=== PATIENT | female | born 1980 | race African-American/Black ===

== ENCOUNTER → 2017-02-14 | Outpatient (CLI) | payer OTHER | LOC: RAD 09:40 | DX: R07.9 Chest pain, unspecified (principal); R55 Syncope and collapse ==

== ENCOUNTER → 2021-01-05 | Outpatient (CLI) | payer OTHER | LOC: RAD 10:37 | PROVIDERS: ATTEND Nurse Practitioner | DX: D25.9 Leiomyoma of uterus, unspecified (principal); N83.291 Other ovarian cyst, right side; N83.292 Other ovarian cyst, left side ==

== ENCOUNTER 2021-04-17 12:22 | Emergency (ER) | payer OTHER ==
[~2021-04-17] VITALS: Ht 180.3 cm; Wt 137.9 kg
[2021-04-17 15:41] LABS: CALCIUM 8.9 mg/dL (8.5-10.1); CREATININE 0.7 mg/dL (0.6-1.0); POTASSIUM 3.8 mmol/L (3.5-5.1)
[2021-04-17 15:42] LABS: ABSOLUTE NEUTROPHILS 5.8 thou/uL (1.4-8.2); EOSINOPHILS 1.5 % (0.0-3.0); HEMATOCRIT 31.3 % (37.0-47.0); HEMOGLOBIN 9.5 gm/dL (12.0-15.0); LYMPHOCYTES 20.3 % (24.0-44.0); MCH 22.1 pg (26.0-34.0); MCHC 30.4 g/dL (28.0-37.0); MCV 72.6 fL (80.0-100.0); MONOCYTES 6.3 % (1.0-8.0); PLATELET COUNT 287 thou/uL (150-400); POLYS 70.9 % (36.0-66.0); RBC 4.31 mil/uL (4.20-5.00); RDW 18.4 % (10.5-14.5); WBC 8.1 thou/uL (4.0-11.0)
[2021-04-17 15:51] LABS: ALBUMIN 3.2 g/dL (3.4-5.0); TOTAL BILIRUBIN 0.3 mg/dL (0.2-1.0); TOTAL PROTEIN 7.4 g/dL (6.4-8.2)
[2021-04-17] MEDS ORDERED: VITAMIN D21250 MCG PO (15:52)
[2021-04-17 16:11] LABS: ANISOCYTOSIS 2+; HYPOCHROMASIA 2+; MACROCYTES FEW; MICROCYTES 1+; POLYCHROMASIA OCCASIONAL
[2021-04-17] MEDS ORDERED: CIPROFLOXIN HC2.5 M1 OTIC (16:17)
[2021-04-17 16:59] VITALS: BP 138/72
--- NOTE | 2021-04-18 13:40 | EKG ---
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
== END 2021-04-17 16:50 | disposition home or self-care (01) ==
LOC: ER 12:22
PROVIDERS: Physician Assistant
DX: S05.02XA Injury of conjunctiva and corneal abrasion without foreign body, left eye, initial encounter (principal); D64.9 Anemia, unspecified; R29.810 Facial weakness; X58.XXXA Exposure to other specified factors, initial encounter; Y93.89 Activity, other specified; Y92.89 Other specified places as the place of occurrence of the external cause; Y99.8 Other external cause status

== ENCOUNTER → 2021-05-07 | Outpatient (CLI) | payer OTHER ==
[~2021-05-07] MED LIST: CIPROFLOXIN HC2.5 M1 OTIC; GUMMI BEAR MUL1 EAC1 PO; IRON325 PO; VITAMIN D21250 MCG PO
== END ==
LOC: LAB 10:52
PROVIDERS: ATTEND Student in an Organized Health Care Education/Training Program
DX: Z01.812 Encounter for preprocedural laboratory examination (principal); Z20.822 Contact with and (suspected) exposure to COVID-19

== ENCOUNTER → 2021-05-11 | Outpatient (CLI) | payer OTHER ==
[~2021-05-11] VITALS: Ht 182.9 cm; Wt 139.7 kg
--- NOTE | 2021-05-14 11:07 | PATH ---
[facility] [address] [place] [address] PATHOLOGY RPT PROCEDURE Name: ROSALIND SCHMIDT Room #: REG [facility] Ashley..#: [id number] Admission: 05/11/21 Date of : 78 Discharge: Report #: [id number] Path Case #: [id number] [facility] Accession Number: [id number] . 01 Material submitted: . ileum - TI NODULE . 01 Clinical history: . COLONOSCOPY ANEMIA, FM HX OF CC, RECTAL BLEEDING . 02 Diagnosis: Small bowel mucosa, terminal ileum nodule, endoscopic biopsy: - WELL-DIFFERENTIATED NEUROENDOCRINE TUMOR/CARCINOID TUMOR. (IUV:pit; 05/12/2021) QTP 05/12/2021 1457 Local . 02 Comment: Examination shows tumor with vickie formation predominantly within the lamina propria, as well as the submucosal fragments. Multiple additional fragments of unremarkable and uninvolved mucosa are identified. There are no adenomatous changes within the fragments. Properly controlled synaptophysin is performed and shows strong granular reactivity within the lesion consistent with the diagnosis rendered. Ki-67 shows approximately 1% nuclear reactivity/proliferation index. . Dr. Crystal Schmid has seen a front desk representative slide of this case and concurs with the diagnosis. Findings of this case are telephoned to Dr. Boone Rice's biomedical engineer at 2:20 pm on 05/12/2021. (IUV:pit; 05/12/2021) . 02 Electronically signed: . Melissa Santos MD, Pathologist NPI- [id number] . 01 Gross description: . The specimen is submitted in formalin, labeled "Rosalind Schmidt, TI nodule". Received are multiple segments of pale fang tissue ranging in size from 0.2 to 0.5 cm in maximum dimensions. The specimen is submitted entirely in cassette A1. ([facility]; 05/11/2021) NRI/NRI 05/11/2021 Local . 02 Pathologist provided ICD-10: D36.15, D3A.8 . 02 [place] [address] PATHOLOGY RPT PROCEDURE Name: JAVONROSALIND Mitchell Room #: [facility].#: [id number] Admission: 05/11/21 Date of : 78 Discharge: Report #: [id number] Path Case #: [id number] Specimen Comment: A courtesy copy of this report has been sent to [phone] Specimen Comment: [id number] Specimen Comment: Report sent to AND DR LAN Specimen Comment: A duplicate report has been generated due to demographic updates. Performed at: [address], [place] [id number] MD Primo Campuzano MD Phone: [phone] Performed at: [address] [id number] MD Melissa Santos MD Phone: [phone]
== END | disposition home or self-care (01) ==
LOC: GI 06:55
PROVIDERS: ATTEND Internal Medicine
DX: D50.9 Iron deficiency anemia, unspecified (principal); D3A.8 Other benign neuroendocrine tumors; K62.5 Hemorrhage of anus and rectum; K64.8 Other hemorrhoids; I10 Essential (primary) hypertension; E66.01 Morbid (severe) obesity due to excess calories; D64.9 Anemia, unspecified; Z79.899 Other long term (current) drug therapy; Z98.890 Other specified postprocedural states; Z68.41 Body mass index [BMI] 40.0-44.9, adult
CPT/HCPCS: 62110; 62900

== ENCOUNTER → 2021-05-20 | Outpatient (CLI) | payer OTHER | END | disposition home or self-care (01) | LOC: LAB 14:03 | PROVIDERS: ATTEND Internal Medicine | DX: C7A.012 Malignant carcinoid tumor of the ileum (principal) ==

== ENCOUNTER → 2021-05-20 | Outpatient (CLI) | payer OTHER | LOC: MRI 09:37 | PROVIDERS: ATTEND Family Medicine | DX: R29.810 Facial weakness (principal) ==

== ENCOUNTER → 2021-06-02 | Outpatient (CLI) | payer OTHER | LOC: CAT 05-25 11:15 | PROVIDERS: ATTEND Internal Medicine | DX: C7A.012 Malignant carcinoid tumor of the ileum (principal); C56.9 Malignant neoplasm of unspecified ovary; K76.0 Fatty (change of) liver, not elsewhere classified; N83.291 Other ovarian cyst, right side ==

== ENCOUNTER → 2021-06-10 | Outpatient (CLI) | payer OTHER | LOC: LAB 16:22 | PROVIDERS: ATTEND Internal Medicine | DX: C7A.012 Malignant carcinoid tumor of the ileum (principal) ==

== ENCOUNTER → 2021-06-23 | Outpatient (CLI) | payer OTHER ==
--- NOTE | 2021-06-23 15:41 | 2DMMODE ---
[facility] [place] [address] 2 D/M-MODE ECHOCARDIOGRAM Name: THERESE ALEJANDRO Room #: REG [facility]#: [id number] Admission: 06/23/21 Attend Phys: Lauren Ritchie DO Discharge: Date of : 78 Report #: [id number] THIS REPORT FOR: cc: Pio Hayward Alan Z. DO Park, Jin S. MD ~ APPROVED REPORT Study performed: 06/23/2021 14:35:44 EXAM: Comprehensive 2D, Doppler, and color-flow Echocardiogram Patient Location: Out-Patient Room #: 2 Status: routine BSA: 2.51 HR: 81 bpm BP: 138/72 mmHg Rhythm: NSR Other Information Study Quality: Adequate Indications CVA/TIA Echo Enhancing Agent Indication: Rule out Shunt Agent(s) / Amount(s) Used: Agitated Saline 7 cc 2D Dimensions RVDd: 31.54 mm IVSd: 10.46 (7-11mm) LVOT Diam: 21.50 (18-24mm) LVDd: 46.84 mm PWd: 11.01 (7-11mm) Ascending Ao: 31.70 (22-36mm) LVDs: 29.72 (25-40mm) Left Atrium: 36.22 (27-40mm) Aortic Root: 27.26 mm IVC: 11.00 mm Volumes Left Atrial Volume (Systole) Single Plane 4CH: 34.19 mL Single Plane 2CH: 55.73 mL LA ESV Index: 19.00 mL/m2 Aortic Valve [facility] [address] [place] [address] 2 D/M-MODE ECHOCARDIOGRAM Name: THERESE ALEJANDRO [facility] [id number] Admission: 06/23/21 Attend Phys: Lauren Ritchie, Discharge: Date of : 78 Report #: [id number] AoV Peak Cresencio.: 1.47 m/s AO Peak Gr.: 8.70 mmHg LVOT Max P.63 mmHg LVOT Max V: 0.95 m/s LIZETTE Vmax: 2.35 cm2 Mitral Valve E/A Ratio: 1.5 MV Decel. Time: 211.12 ms MV E Max Cresencio.: 0.76 m/s MV A Cresencio.: 0.52 m/s MV PHT: 61.23 ms IVRT: 73.82 ms Pulmonary Valve PV Peak Cresencio.: 0.83 m/s PV Peak Gr.: 2.77 mmHg Pulmonary Vein P Vein S: 0.58 m/s P Vein A: 0.25 m/s P Vein D: 0.51 m/s P Vein A Dur.: 92.3 msec P Vein S/D Ratio: 1.14 Left Ventricle The left ventricle is normal size. There is normal LV segmental wall motion. There is normal left ventricular wall thickness. Left ventricular systolic function is normal. The left ventricular ejection fraction is within the normal range. LVEF is 60-65%. The left ventricular diastolic function is normal. Right Ventricle The right ventricle is normal size. The right ventricular systolic function is normal. Atria The left atrium size is normal. Injection of bubbles documented no interatrial shunt. The right atrium size is normal. Aortic Valve The aortic valve is normal in structure. No aortic regurgitation is present. There is no aortic valvular stenosis. Mitral Valve The mitral valve is normal in structure. There is no mitral valve regurgitation noted. No evidence of mitral valve stenosis. Tricuspid Valve The tricuspid valve is normal in structure. There is no tricuspid [address] [address] 2 D/M-MODE ECHOCARDIOGRAM Name: THERESE ALEJANDRO Room #: REG [facility]#: [id number] Admission: 06/23/21 Attend Phys: Lauren Ritchie, Discharge: Date of : 78 Report #: [id number] valve regurgitation noted. Pulmonic Valve The pulmonary valve is normal in structure. There is no pulmonic valvular regurgitation. Great Vessels The aortic root is normal in size. IVC is normal in size and collapses >50% with inspiration. Pericardium There is no pericardial effusion. <Conclusion> The left ventricle is normal size. There is normal left ventricular wall thickness. Left ventricular systolic function is normal. The left ventricular diastolic function is normal. The right ventricle is normal size. The left atrium size is normal. Injection of bubbles documented no interatrial shunt. The aortic valve is normal in structure. There is no mitral valve regurgitation noted. <ELECTRONICALLY SIGNED> By: Yoan Bishop MD 06/23/21 1541 1541 154 Yoan Bishop MD /INF
== END ==
LOC: CV 06-16 10:52
PROVIDERS: ATTEND Psychiatry & Neurology Neurology
DX: I65.23 Occlusion and stenosis of bilateral carotid arteries (principal); R29.810 Facial weakness